=== PATIENT | male | born 1980 | race Caucasian/White ===

== ENCOUNTER → 2017-06-17 15:28 | Outpatient (CLI) | payer MEDICAID, SELFPAY ==
--- NOTE | 2017-06-17 15:35 | MRI_ITS ---
STUDY: MRI BRAIN WITH AND WITHOUT CONTRAST REASON FOR EXAM: Male, 36 years old. Optic nerve edema with blurry vision of the left eye for 5 days. TECHNIQUE: Standardized multiplanar fat and water weighted pulse sequences were obtained. 14 ml of Gadavist contrast material was administered intravenously for the contrast portion of the examination. COMPARISON: None. FINDINGS: Normal size of the ventricles and extra-axial spaces for the patient's age. Normal white matter tracts of the supratentorial brain. There is no evidence for recent intracranial ischemia or other cause of cytotoxic edema on diffusion weighted imaging (DWI). Incidental choroid plexus cysts are present. Normal bilateral basal ganglia. Normal thalami. There is no extra-axial fluid accumulation. Normal flow voids within the major intracranial circulation suggesting patency by spin echo criteria. Normal venous enhancement. There is no enhancing intra-axial or extra-axial abnormality. Normal sella turcica, pituitary gland, infundibular stalk, optic chiasm and hypothalamus. Normal tectal plate and pineal gland. Normal midbrain, diana and medulla. Normal cerebellum. Normal basal cisterns. Normal bilateral temporal bones. Normal bilateral internal auditory canals. No demonstrated orbital abnormality, within the constraints of a routine brain study. Normal visualized paranasal sinuses. Normal calvarium and skull base. Normal visualized soft tissue structures. Normal visualized upper cervical spine. MRI/Brain W/WO Contrast IMPRESSION: No evidence of acute intracranial bleed, mass or ischemia. No evidence of abnormal orbital enhancement, edema or inflammatory process. Electronically Signed: Narayan Mcgarry DO at 23:58 EST , Service support ,
== END ==
PROVIDERS: Visit Provider Ophthalmology
DX: H47.10 Unspecified papilledema (principal)
CPT/HCPCS: 70553; A9585

== ENCOUNTER 2017-12-03 23:29 | Emergency (ER) | payer MEDICAID, SELFPAY ==
[2017-12-03 23:31] VITALS: BP 132/78; PULSE 84; RESP 17; TEMP 36.3; O2SAT 98; BMI 42.1
--- NOTE | 2017-12-03 23:58 | ED.VISSUMM ---
- ER Visit Summary Date of Service: 12/03/17 Chief Complaint: [] Food stuck in my esophagus History of Present Illness: The patient is a 37 M with the above complaining of food stuck in his esophagus and since today at 5 PM. He was eating fried chicken and felt to get stuck. It happens 1-2 times per month. Usually he can get it to go down. He has never had to have an emergent endoscopy to remove food. He is on Prilosec for reflux. He did have an endoscopy that showed an esophageal ring 2 years ago. He tried to drink water and soda and it comes back. He has tried 50 times at home. Physical Examination: [] Vital signs reviewed General: Well-nourished well-developed Head: Normocephalic atraumatic Eyes: Pupils equal round and reactive to light extraocular movements intact ENT: TMs clear no hemotympanum no trauma Neck: Nontender full range of motion Cardiovascular: Regular rate rhythm no murmurs normal S1-S2 Respiratory: No distress clear to auscultation bilaterally chest nontender Abdomen: Soft nontender nondistended normal bowel sounds no masses Back: Nontender no CVA tenderness Extremities: Nontender active range of motion ?4 extremities no trauma Skin: Normal color no trauma Neuro alert oriented cranial nerves II through XII intact normal strength sensation reflexes Test Results: [] Emergency Department Course and Treatment: [] IV established given IV fluids and glucagon. Given soda to try to get it to pass. No success with either. Given a second dose of glucagon with no success. Surgery cannot do the case. Will be transferred Treatment Plan: [] Disposition: [] Impression: [] Food bolus impaction esophagus This note was generated with [employer] dictation software. It may contain incorrect words, spelling, and punctuation that were not noted in review of the chart prior to signing ED Disposition - Plan for ED Patient: Chief Complaint: Foreign Body Referrals: Torsten Gamez [Primary Care Provider] -
[2017-12-04] MEDS: 0.9% Normal Saline 1,000 ML 1000 ML IV (00:35)
[2017-12-04] MEDS: Glucagon 1 MG/ML Syringe IV ×2 (00:35→02:14)
[2017-12-04 01:29] VITALS: BP 143/89; PULSE 82; RESP 12; O2SAT 98
--- NOTE | 2017-12-04 02:39 | ED.RN ---
NURSE TO NURSE REPORT CALLED AT 0220. CRISTIN AT [facility] ACCEPTED REPORT. PIV IN RIGHT HAND WAS DISCONTINUED. SITE INTACT.
[2017-12-04 02:43] VITALS: BP 139/72; PULSE 87; RESP 18; O2SAT 97
== END 2017-12-04 02:44 | disposition short-term general hospital (02) ==
LOC: ED 12-04 00:17
PROVIDERS: Emergency Provider Emergency Medicine
DX: T18.128A Food in esophagus causing other injury, initial encounter (principal); X58.XXXA Exposure to other specified factors, initial encounter; Y93.89 Activity, other specified; Y92.9 Unspecified place or not applicable; K21.9 Gastro-esophageal reflux disease without esophagitis; G47.33 Obstructive sleep apnea (adult) (pediatric); E66.9 Obesity, unspecified; Z68.41 Body mass index [BMI] 40.0-44.9, adult; Z72.0 Tobacco use
CPT/HCPCS: 96374; 96376; 99283; J7030; A4216; J1610

== ENCOUNTER → 2020-12-03 13:41 | Outpatient (CLI) | payer MEDICAID, SELFPAY ==
[2020-12-03 15:23] LABS: Absolute Neutrophil Count 4.5 X10^3/uL (2.0-7.7); Basophil# 0.08 X10^3/uL; Basophil% 0.9 % (0-1); Eosinophils% 8.3 % (0-5); Hematocrit 45.9 % (40-54); Hemoglobin 15.4 g/dL (13.0-16.5); Lymphocyte % 31.9 % (19-41); Mean Corp Hgb Conc 33.6 g/dL (32-36); Mean Corpuscular Hgb 29.5 pg (27.0-32.0); Mean Corpuscular Volume 87.9 fL (80-94); Mean Platelet Vol. 9.8 fl (6.2-12.0); Monocyte# 0.44 X10^3/uL; Monocyte% 5.2 % (0-10); NRBC Flagged by Analyzer 0 % (0-5); Neutrophil # 4.51 X10^3/uL (2.7-7.7); Neutrophil % 53.3 % (47-70); Platelet Count 311 K/mm3 (150-450); RBC Distribution Width CV 12.9 % (11.6-14.6); RBC Distribution Width SD 41.4 fl (35.1-43.9); Red Blood Count 5.22 M/mm3 (4.6-6.2); White Blood Count 8.5 K/mm3 (4.4-11.0)
[2020-12-03 15:39] LABS: Erythrocyte Sedimentation Rate 11 mm/hr (0-20)
[2020-12-03 15:59] LABS: CRP 4.81 mg/L (0.0-3.0)
[2020-12-04 08:47] LABS: Syphilis Antibodies Non-reactive
[2020-12-06 06:08] LABS: QNTFERON TB Mitogen Value > 10.00 IU/mL (.); QNTFERON TB Nil Value 0 IU/mL (.); QNTFERON TB1+ Ag Value 0.01 IU/mL (.); QNTFERON TB2+ Ag Value 0 IU/mL (.)
[2020-12-06 07:38] LABS: Angiotensin Convert Enzyme 26 U/L (14-82); QNTIFERON TB Positive Criteria Negative (Negative)
== END ==
PROVIDERS: Visit Provider Ophthalmology
DX: H47.10 Unspecified papilledema (principal)
CPT/HCPCS: 36415; 82164; 85025; 85652; 86140; 86480; 86780

== ENCOUNTER → 2020-12-05 06:24 | Outpatient (CLI) | payer MEDICAID, SELFPAY ==
--- NOTE | 2020-12-05 06:39 | MRI_ITS ---
STUDY: MRI ORBITS WITH AND WITHOUT CONTRAST REASON FOR EXAM: Male, 40 years old. OPTIC DISC EDEMA LEFT EYE, blurred vision TECHNIQUE: Standardized fat and water weighted pulse sequences were obtained in all 3 orthogonal planes, pre-and post contrast administration. IV Yes YES was administered for the contrast portion of the examination. COMPARISON: 06/17/2017. FINDINGS: Normal bilateral globes. Normal bilateral optic nerve sheath complexes and optic nerves. Normal bilateral intraconal and extraconal spaces. Normal bilateral extraocular muscles. Normal optic chiasm and post-chiasmatic tracts. Normal sella turcica, pituitary gland, infundibular stalk, and hypothalamus. Normal bilateral cavernous sinuses. Normal tectal plate and pineal gland. Normal flow voids within the major intracranial circulation suggesting patency by spin echo criteria. Normal size of the ventricles and extra-axial spaces for the patient''s age. Normal white matter tracts of the supratentorial brain. Normal bilateral basal ganglia. Normal thalami. There is no extra-axial fluid accumulation. Normal midbrain, diana and medulla. Normal cerebellum. Normal basal cisterns. No significant change since prior exam MRI/Orbit Face Neck W/WO Contrast IMPRESSION: Normal enhanced and unenhanced MRI of the orbits. Electronically Signed: Sandro Morel MD at 16:37 EDT , Service support ,
== END ==
PROVIDERS: Referring Provider Ophthalmology; Visit Provider Ophthalmology
DX: H47.10 Unspecified papilledema (principal)
CPT/HCPCS: 70543; A9575

== ENCOUNTER → 2020-12-07 12:48 | Outpatient (CLI) | payer MEDICAID, SELFPAY ==
--- NOTE | 2020-12-07 12:55 | CDU_ITS ---
Reason For Study: Optic disc Edema Rt. Velocities/BP Lt. Velocities/BP Prox CCA 168/21 cm/sec. Prox CCA 151/26 cm/sec. Mid CCA 126/25 cm/sec. Mid CCA 117/35 cm/sec. Dist CCA 99/21 cm/sec. Dist CCA 101/30 cm/sec. Prox ICA 73/24 cm/sec. Prox ICA 86/33 cm/sec. Mid ICA 93/40 cm/sec. Mid ICA 111/45 cm/sec. Dist ICA 100/44 cm/sec. Dist ICA 93/28 cm/sec. Rt. ICA/CCA = 0.8. Lt. ICA/CCA = 1.0. Prox ECA 231/27 cm/sec. Prox ECA 165/17 cm/sec. Rt. Vert. 48/12 cm/sec. Lt. Vert. 39/11 cm/sec. Right Extracranial There is intimal thickening but no significant atherosclerotic plaque noted in the right common carotid artery. There is heterogeneous, smooth atherosclerotic plaque noted in the right internal carotid artery. There is intimal thickening but no significant atherosclerotic plaque noted in the right external carotid artery. Antegrade flow is noted in the right vertebral artery. Left Extracranial There is intimal thickening but no significant atherosclerotic plaque noted in the left common carotid artery. There is homogeneous, smooth atherosclerotic plaque noted in the left internal carotid artery. There is no significant atherosclerotic plaque noted in the left external carotid artery. Antegrade flow is noted in the left vertebral artery. Procedure Carotid Duplex 30573. This is a Carotid Duplex examination using B-mode, color flow and specral Doppler. Exam performed in department. VL/Carotid Duplex Ultrasound Interpretation Summary Mild (<50%) stenosis right extracranial internal carotid. Mild (<50%) stenosis left extracranial internal carotid. Flow within the vertebral arteries is antegrade bilaterally. Elevated velocities in the right external carotid artery are suggestive of stenosis >50%. Ordering Physician: Rolf Peoples Referring Physician: Torsten Gamez Performed By: Yazmin Salazar RDCS, RVT
== END ==
PROVIDERS: Referring Provider Ophthalmology; Visit Provider Ophthalmology
DX: H47.10 Unspecified papilledema (principal)
CPT/HCPCS: 93880

== ENCOUNTER 2024-12-21 08:57 | Outpatient (CLI) | payer MEDICAID, SELFPAY ==
--- NOTE | 2024-12-21 09:10 | US_ITS ---
PROCEDURE: US NEEDLE BIOPSY/SOFT TISSUE N/A REASON FOR EXAM: M25.311 - OTHER INSTABILITY, RIGHT SHOULDER TECHNIQUE: Pre MRI right glenohumeral joint injection, under sonographic guidance. COMPARISON: Right shoulder study of 10/31/2024. FINDINGS: Procedure: Following informed consent, and using standard sterile technique, a right glenohumeral joint pre MRI injection was performed under sonographic guidance, via a posterior approach. A 22 gauge needle was placed under sonographic guidance and a combined total of 20 mL fluid was injected into the glenohumeral joint. This consisted of 5 mL normal saline, 5 mL 1% lidocaine, and 10 mL dilute Clariscan. No complication was encountered, in the patient left the department for MRI examination. US/US Needle Biopsy/Soft Tissue IMPRESSION: Successful pre MRI ultrasound-guided right glenohumeral joint injection. MR ar thrographic images pending. Reading Location: [place] [address]
--- NOTE | 2024-12-21 09:17 | MRI_ITS ---
PROCEDURE: UPPER EXT JT W/CONTRAST 12/21/2024 REASON FOR EXAM: RT SHLDR 4X DISLOCATION IN 5YRS TECHNIQUE: Right shoulder MR arthrogram COMPARISON: Right shoulder study of 10/31/2024. FINDINGS: A small amount of intra-articular right glenohumeral joint contrast is seen, along with extravasated contrast material. Abdj-gd-jhyltxel right acromioclavicular joint degenerative changes are seen. No acute osseous signal change is seen. No significant rotator cuff disease is noted. The long head of the biceps tendon appears intact. The right glenohumeral joint demonstrates a tear of the anterior and anterior- inferior glenoid labrum. MRI/Upper Ext Jt W/Contrast IMPRESSION: 1. Anterior and anterior-inferior glenoid labral tear. 2. Qnnc-vy-luqcpieu right acromioclavicular joint degenerative changes. Reading Location: [place] [address]
[2024-12-21] MEDS: LIDOCAINE INTRAARTIC (09:45)
[2024-12-21] MEDS: [UNRECOGNIZED DRUG - OTHER] INTRAARTIC (09:45)
== END 2024-12-21 23:59 | disposition home or self-care (01) ==
LOC: RAD 08:58
PROVIDERS: Referring Provider Orthopaedic Surgery Sports Medicine; Visit Provider Orthopaedic Surgery Sports Medicine
DX: M25.311 Other instability, right shoulder (principal)
CPT/HCPCS: 20611; 73222; 76942

== ENCOUNTER 2025-01-18 09:42 | Day surgery (SDC) | payer MEDICAID, SELFPAY ==
[2025-01-18] VITALS (12 sets, daily range): BP systolic 108–146; BP diastolic 63–79; PULSE 38–76; RESP 16–18; TEMP 36–36.7; O2SAT 92–98; BMI 44.6
--- NOTE | 2025-01-18 10:04 | PCM.HP.STD ---
HPI - General HPI Narrative PALOMA MORGAN, is a 44 M who presents for right shoulder arthroscopy, labral repair. no change to h and p. right shoulder marked. ok to proceed. rab, post op instructions, and narcotic counselling. plan for block. MR#: [id number] Acct: [id number] Name: PALOMA MORGAN Rep #: [id number] : 1980 Provider: Dr. Connor Hoang MD Age/Sex: 44/M Location: [facility] [place] Status: Signed Intake Vital Signs 10/31/2509:21 12/21/2510:49 12/22/2514:37 Height 5 ft 11 in 5 ft 11 in 5 ft 11 in Weight: 325 lb 320 lb BMI 45.3 44.6 Intake Visit Reasons: RIGHT SHOULDER Chief Complaint: Right shoulder MRI review Accompanied by: Daughter Is patient in pain?: No Allergies erythromycin base Adverse Reaction (Verified 12/22/24 15:39) Rash Penicillins Adverse Reaction (Verified 12/22/24 15:39) Rash sulfamethoxazole (From ) Adverse Reaction (Verified 12/22/24 15:39) Rash trimethoprim (From ) Adverse Reaction (Verified 12/22/24 15:39) Rash Medications ?Medication ?Instructions ?Recorded ?Confirmed ?Type loratadine 10 mg tablet (Allergy 10 mg PO QDAY 10/31/24 12/22/24 History Relief (loratadine)) montelukast 10 mg tablet 10 mg PO QDAY 10/31/24 12/22/24 History rosuvastatin 10 mg tablet 10 mg PO QDAY 10/31/24 12/22/24 History Have you fallen in the past year?: No PFSH Medical History Tear of right glenoid labrum Hypercholesteremia Instability of right shoulder joint Surgical History History of tonsillectomy Social History Smoking Status: Current every day smoker HPI RIGHT SHOULDER Details: This documentation accurately reflects the service provided and the decisions made by me, Dr. Connor Hoang MD 12/22/24 1253. Part of today?s visit was documented by [ ], acting as scribe. PALOMA MORGAN is a 44 year old M here today for FU R shoulder MRI for instability. Patient still having weakness and instability sensations especially with doing work over shoulder height and above head Supplemental Info [facility] Imaging Services [address] [place] [address] Upper Ext Jt W/Contrast MR#: [id number] Acct: [id number] Name: PALOMA MORGAN Rep #: [id number] : 1980 M 44 From: Pa Alonso MD PCP: Dr. Torsten Gamez MD Status: REG CLI Study: Upper Ext Jt W/Contrast Date of Exam: 12/21/24 Exam# [id number] Ordering Dr: Connor Hoang MD PROCEDURE: UPPER EXT JT W/CONTRAST 12/21/2024 REASON FOR EXAM: RT SHLDR 4X DISLOCATION IN 5YRS TECHNIQUE: Right shoulder MR arthrogram COMPARISON: Right shoulder study of 10/31/2024. FINDINGS: A small amount of intra-articular right glenohumeral joint contrast is seen, along with extravasated contrast material. Fmxf-bd-ydhnnxnu right acromioclavicular joint degenerative changes are seen. No acute osseous signal change is seen. No significant rotator cuff disease is noted. The long head of the biceps tendon appears intact. The right glenohumeral joint demonstrates a tear of the anterior and anterior-inferior glenoid labrum. MRI/Upper Ext Jt W/Contrast IMPRESSION: 1. Anterior and anterior-inferior glenoid labral tear. 2. Jxua-qv-rzsdksee right acromioclavicular joint degenerative changes. Reading Location: [place] [address] I independently reviewed the imaging. Concur with radiologist report. Coding Level of Care Code Off vis,est,level 4 Diagnoses Instability of right shoulder joint M25.311 Tear of right glenoid labrum S43.431A Assessment and Plan Assessment and Plan (1) Instability of right shoulder joint: Status: Acute Plan: PALOMA MORGAN is a 44 year old M here today for FU R shoulder MRI for instability, which shows puneet inferior labrum tear, consistent with shoulder dislocation and persistent instability sensations. Patient has now had 4 total dislocation and instability episodes. Can continue treating this nonoperatively however the surgical option would offer him a better chance of a stable shoulder less chance of long-term damage to the cartilage and possibly the rotator cuff tendons and other structures about the shoulder. This would be in the form of right shoulder arthroscopy, labral repair. The patient understands wished to go ahead with surgery. We also discussed the postoperative recovery 2 weeks in a sling up to 3 to 4 months before going back to any sort of aggressive overhead activities. Surgery does have risks of re-tear or stiffness especially given the patient's age over 40 years old. Patient understands and wished to go ahead with surgery and signed consent form for that. Pros and cons risks and benefits were discussed with the patient including but not limited to infection, pain, stiffness, bleeding, damage to surrounding structures, neurovascular injury, recurrence or retear, failure or wear of hardware or fixation, instability, fracture, deep vein thrombosis and pulmonary embolism, anesthetic risks, , patient dissatisfaction, need for further surgery and other risks. Patient understood and wished to proceed with surgery, and signed the informed consent documentation. (2) Tear of right glenoid labrum: Status: Acute Clinical Quality Measures Falls Risk Screening/Assistive Devices Have you fallen in the past year?: No Ortho Exam General General: Yes no acute distress Neurologic: Yes alert and Yes oriented x3 Psychologic: Yes reasonable and appropriate [facility] Medical History History of steroid therapy Difficulty swallowing Smoker Sleep apnea Asthma Tear of right glenoid labrum Hypercholesteremia Instability of right shoulder joint Home Medications ?Medication ?Instructions ?Recorded ?Last Taken ?Type loratadine 10 mg tablet (Allergy 10 mg PO QDAY 10/31/24 01/17/25 History Relief (loratadine)) montelukast 10 mg tablet 10 mg PO QDAY 10/31/24 01/17/25 History rosuvastatin 10 mg tablet 10 mg PO QDAY 10/31/24 01/17/25 History albuterol sulfate 90 mcg/actuation 2 puff inhalation Q6H PRN 01/04/25 Unknown History aerosol inhaler shortness of breath or wheezing dupilumab 300 mg/2 mL subcutaneous 300 mg subcut .Q 1 1/2 WEEKS 01/04/25 01/06/25 History syringe (Dupixent) Allergy/AdvReac Type Severity Reaction Status Date / Time erythromycin base Allergy Rash Verified 01/18/25 10:16 Penicillins Allergy Rash Verified 01/18/25 10:16 sulfamethoxazole (From Allergy Rash Verified 01/18/25 10:16 Septra) trimethoprim (From ) Allergy Rash Verified 01/18/25 10:16 Surgical History History of tonsillectomy Social History Smoking Status: Current every day smoker tobacco type: cigarettes
[2025-01-18] MEDS: Lactated Ringers 1,000 ML 15 ML IV (10:18)
--- NOTE | 2025-01-18 10:26 | PRE.ANES_ITS ---
ASA Classification* ASA Classification ASA Classification: 2 Assessment & Plan Anesthesia* Anesthesia Assessment Anesthesia Assessment: Discussed sedation and/or anesthesia options, risks, benefits, and alternatives with patient/parents/legal guardian/POA. Questions invited. The patient/parents/legal guardian/POA seems to understand and agrees to proceed with anesthesia plan. Reviewed the physical assessment, medical history, allergy history and patient home medications list prior to surgery/procedure/anesthetic and documented any changes. Performed airway and anesthesia risk assessments. Anesthesia Type Anesthesia Type: General and Block History Source History Obtained from:: Patient and Chart Anesthesia Focused Assessment* Temperature: 97.8 F Pulse Rate: 59 Blood Pressure: 134/77 Respiratory Rate: 17 Pulse Ox: 96 Oxygen Delivery Method: Room Air Airway Assessment Mouth opens: >3 cm Mallampati Score: II Teeth Condition: Missing Neck Range of motion (ROM): Full ROM Labs Anesthesia Preop lab: CBC WBC, (4.4-11.0) 8.5 K/mm3 12/03/20, 13:46 RBC, (4.6-6.2) 5.22 M/mm3 12/03/20, 13:46 Hgb, (13.0-16.5) 15.4 g/dL 12/03/20, 13:46 Hct, (40-54) 45.9 % 12/03/20, 13:46 Plt Count, (150-450) 311 K/mm3 12/03/20, 13:46 CHEMISTRY Potassium, (3.5-5.1) 4.0 mmol/L 03/26/12, 13:50 Sodium, (136-145) 139 mmol/L 03/26/12, 13:50 BUN, (7-18) 13 mg/dL 03/26/12, 13:50 Creatinine, (0.8-1.3) 1.1 mg/dL 03/26/12, 13:50 Glucose, (70-110) 80 mg/dL 03/26/12, 13:50 COAG Pre-Assessment Diagnosis/Proposed Procedure Planned Operative Procedure(s): (R) Right shoulder arthroscopy, labrum repair Anesthesia History 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 When Was Last Pacemaker Check QUESTION #4 FULL TEXT: You/Your Family Experience fever (hyperthermia) with Anesthesia Last Oral Intake Last Oral intake: Last Oral Intake NPO since 00:00 01/18/25 10:19 Meds taken in AM with sips of No 01/18/25 10:19 water? 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 Female No 01/04/25 11:22 HX of Motion Sickness No 01/04/25 11:22 HX of N/V After Surgery No 01/04/25 11:22 Non-Smoker No 01/04/25 11:22 Duration of Surgery greater Yes 01/04/25 11:22 than 60 minutes Number of Risk Factors 1 01/04/25 11:22 PONV Score Low Risk 01/04/25 11:22 Height & Weight Height & Weight: Anesthesia: Height & Weight Height 5 ft 11 in 01/18/25 10:19 Weight: 145 kg 01/18/25 10:19 Body Mass Index (BMI) 44.6 01/18/25 10:19 Respiratory Assessment Respiratory Assessment - continuous crusher operator: Respiratory Tract Infection Hx - continuous crusher operator Hx Respiratory Tract Infection No 01/04/25 11:22 STOP Sleep Apnea STOP Sleep Apnea - continuous crusher operator: STOP Sleep Apnea - continuous crusher operator Hx Hypertension No 01/04/25 11:22 Hx Sleep Apnea Yes: NONE USED 01/04/25 11:22 CPAP No 01/04/25 11:22 BIPAP No 01/04/25 11:22 Do you snore loudly (louder than talking or can be heard Do you often feel tired/ fatigued/ sleepy during daytime? Has anyone observed you stop breathing during sleep? STOP Results Positive 01/04/25 11:22 QUESTION #5 FULL TEXT : Do you snore loudly (louder than talking or can be heard through closed doors)? 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 Specify any problems Hx of Preganancy in last 3 N/A 01/04/25 11:22 Months Nurse Filling Out Transfusion VCHRISTIN 01/04/25 11:22 & Questions: Date: 01/04/25 01/04/25 11:22 Time: 11:23 01/04/25 11:22 Patient unable to answer at this time (ie. confused, unrespo /Reproduction History /Reproductive History - continuous crusher operator: /Reproductive Hx- continuous crusher operator Hx Now No 01/04/25 11:22 Gestational Age (in weeks): EDC: Hx Hx Para Hx Section SAB No 01/04/25 11:22 Active Medications Active Medications: Current Medications Generic Name Dose Route Start Last Admin Trade Name Freq PRN Reason Stop Dose Admin Cefazolin Sodium 3 gm/ Sodium 115 mls @ 200 mls/hr 01/18/25 12:00 Chloride IV 01/18/25 12:34 INTRAOP ONE Lactated Ringer's 1,000 mls @ 15 mls/hr 01/18/25 10:00 01/18/25 10:18 IV 15 mls/hr .Q48H VICKIE Administration PFSH Medical History History of steroid therapy Difficulty swallowing Smoker Sleep apnea Asthma Tear of right glenoid labrum Hypercholesteremia Instability of right shoulder joint Home Medications ?Medication ?Instructions ?Recorded ?Last Taken ?Type loratadine 10 mg tablet (Allergy 10 mg PO QDAY 10/31/ 5 01/17/25 History Relief (loratadine)) montelukast 10 mg tablet 10 mg PO QDAY 10/31/2401/17 History rosuvastatin 10 mg tablet 10 mg PO QDAY 10/31/2401/17 History albuterol sulfate 90 mcg/actuation 2 puff inhalation Q 6H PRN 01/04/25 Unknown History aerosol inhaler shortness of breath or [place] ing dupilumab 300 mg/2 mL subcutaneous 300 mg subcut .Q 1 1/2 WEEKS 01/04/25 01/06/25 History syringe (Dupixent) Allergy/AdvReac Type Severity Reaction Status Date / Time erythromycin base Allergy Rash Verified 01/18/25 10:16 Penicillins Allergy Rash Verified 01/18/25 10:16 sulfamethoxazole (From Allergy Rash Verified 01/18/25 10:16 Septra) trimethoprim (From Janra) Allergy Rash Verified 01/18/25 10:16 Surgical History History of tonsillectomy Social History Smoking Status: Current every day smoker tobacco type: cigarettes Review of Systems (Anesthesia) ROS Narrative System reviewed and no additional complaints, except as documented.
[2025-01-18] MEDS: Midazolam 2 MG/2 ML Syringe IV (11:31)
[2025-01-18] MEDS: Cefazolin 1 GM/5 ML Vial 3 GM IV (11:58)
[2025-01-18] MEDS: Lidocaine 1% (5 ml sdv) 5 ML Vial IV (12:04)
[2025-01-18] MEDS: Epinephrine (1 mg/ml) 1 MG/ML VIAL (12:42)
--- NOTE | 2025-01-18 13:22 | DCINST_ITS ---
Discharge Instructions Diet Discharge Diet: No restrictions Activity Ice area for (Minutes): 10 Lifting Restrictions: pendulums, hand wrist elbow rom 4x/day, no lifting over 1 pound Additional Activity Instructions:: ok to take breaks from sling, but keep hand in lap Dressing / Incision Call your doctor if your incision/area has: Continuous Slow Oozing, Sudden Increased Bleeding, Increased Pain/ Swelling, Increased Redness, Foul Smelling Discharge and Swelling at the incision site Call your doctor if you observe: Fever of 101 or Higher, Coldness, Increased Pain and Numbness or Tingling Change Dressing in: leave in place till F/U Cleanse incision/area with: Do not get Incision Wet Additional Dressing/Incision Instructions:: ok to remove large dressing, keep tapes in place, keep incisions covered Follow Up Care Please Follow Up With: Connor Hoang MD When: within 2 weeks Test Results: Test results from this visit will be discussed in further detail at your follow- up appointment, if applicable. Discharge Plan Admission Attending Provider: Connor Hoang Primary Care Provider: Torsten Gamez Instructions Patient Instructions: After Shoulder Arthroscopy Print Language: Divehi Discharge Orders/Prescriptions Prescriptions: New oxycodone-acetaminophen [Percocet] 5-325 mg tablet 1 tab PO Q6H MDD 6 PRN (Reason: pain) 3 Days Qty: 20 0RF No Action rosuvastatin 10 mg tablet 10 mg PO QDAY loratadine [Allergy Relief (loratadine)] 10 mg tablet 10 mg PO QDAY montelukast 10 mg tablet 10 mg PO QDAY Dupixent Syringe 300 mg/2 mL syringe 300 mg SUBCUT .Q 1 1/2 WEEKS Patient Comments: [NO ORIGINAL SIG] albuterol sulfate 90 mcg/actuation HFA aerosol inhaler 2 puff INHALATION Q6H PRN (Reason: shortness of breath or wheezing) Referrals / Follow Up: Torsten Gamez MD [Primary Care Provider, Medical] Connor Hoang MD [Med Staff - Active Staff, Orthopedics] Disposition Disposition (needs filled in before D/C Order can be placed): Home, Self Care
--- NOTE | 2025-01-18 13:27 | PCM.OPRPT ---
Procedures Musculoskeletal 20xxx-29xxx: Other Procedure See Report Operative Report (Standard) Operative Information Date of Procedure: 01/18/25 Pre-Operative Diagnosis: Right shoulder labrum tear and instability Post-Operative Diagnosis: same, SLAP tear Surgery/Procedure Performed: Left shoulder arthroscopy labrum repair and repair of SLAP tear. emergency spill response technician: Yes Metallographic Technician: [email or web address] Tasks completed by first press operator: Retracting Type of Anesthesia: Block,Regional and General RN Documented Start/Stop Times: Operation Date: 01/18/25 12:00 Case Time Into Pre-Op 01/18/25 09:50 Anesthesia Start 01/18/25 11:58 Into Room 01/18/25 11:58 Procedure Start 01/18/25 12:28 Procedure Start Time: 12:28 Procedure Stop Time: 13:28 Select all DRAINS/GRAFTS/IMPLANTS that apply: Implanted device Implanted device details: 1.8mm fiber nolberto anchors x 5. arthrex Estimated Blood Loss: 25 Specimen collected: No Description of surgery: Patient brought to the operating room theater. Placed supine on the table. 3 g of IV Ancef administered prior to the start of the case. General anesthesia induced. All bony prominences padded. Patient transferred right side up lateral decubitus beanbag positioner. Axillary roll placed. SCDs on the legs. Upper extremity prepped and draped in the usual sterile fashion with chlorhexidine-based prep solution allowing over 3 minutes drying time prior to draping. 10 pounds of inline traction with the arm in 45 degrees of abduction was utilized. Preoperative timeout performed to confirm the site patient and the surgery. Began by understanding the arthroscope into the intra-articular portion of the shoulder through a standard posterior arthroscopy portal. Did a full diagnostic arthroscopy. There was unstable cartilage flaps in the middle of the glenoid I gently debrided those through an anterior portal which I established just posterior to the biceps tendon and through the rotator interval. There is a tear in the labrum from the superior portion of the biceps all the way inferiorly to 6:00. Rest of the labrum appeared normal. No loose bodies. Undersurface of the rotator cuff appeared normal. Long head of the biceps was normal aside from the attachment point where there was a SLAP tear. I elevated the labrum using elevator instruments. I placed another cannula using two 7 x 7 mm cannula through the rotator interval 1 just superior to the subscapularis. Used a shaving instrument to stimulate a bony bleeding bed for healing as well as using a ring curette to remove some small amount of cartilage at the anterior edge of the anterior glenoid. I then drilled and placed sequentially from inferior to superior at the anterior aspect of the glenoid 1.8 mm Arthrex all suture fiber tack knotless anchors. Placed these at 6, 5, 4 and 3 oclock positions. I sequentially tightened these and cut the suture short as well as capturing some small amount of the capsule for a capsular labral shift. Also of the superior labrum was also unstable therefore elected to do a SLAP repair using a similar 1.8 mm knotless Arthrex fiber tack anchor at the 12 o'clock position passing the repair suture just anterior to the biceps removed. Did try initially through a trans cuff portal / neviaser, but not a good angle. This repair was also stable and solid. Final arthroscopy pictures taken and saved onto the system. Case terminated wounds thoroughly irrigated and cleaned with wet and dry dressing portal sites closed with 3-0 Monocryl suture. Skin cleaned with wet and dry dressing followed by application of Steri-Strips Adaptic 4 x 4 gauze ABD dressing cloth tape and an abduction pillow sling. Patient woken up from a general anesthetic transferred off the operating table taken to postanesthetic care unit in stable condition. All sponge needle instrument counts were correct no complications plan for the patient discharge home according to day surgery criteria follow-up in the office within 2 weeks time. CPT 30295, 48819, 48616 Surgical Findings: as above Complications Complications: No Admit VTE Documentation VTE Present on Admission: No VTE Mechan Device Prophylaxis: SCD's VTE Pharm Prophylaxis ordered?: No Reason prophylaxis not ordered: Treatment Not Indicated
--- NOTE | 2025-01-18 13:42 | PCM.POST.ANE ---
Anesthesia: Postop Eval I Current Vital Signs Temperature: 98.1 F Pulse Rate: 74 Blood Pressure: 146/68 Respiratory Rate: 16 Pulse Ox: 96 Assessment Airway patent: Yes Spontaneous unlabored respirations: Yes nausea: No Vomiting: No Anesthesia Complication: No Fluid Hydration Crystalloid volume administer (ml): 900 Total IV fluid infused: 900 Progress Note Anesthesia document: Postop Eval 1 completed: Yes
--- NOTE | 2025-01-18 15:34 | POSTOPAN2_ITS ---
Anesthesia Postop Eval I Sum Postop Eval Completion status Anesthesia document: Postop Eval 1 completed: Yes Anesthesia Postop Eval I Summary Anesthesia Postop Eval I Summary: Anesthesia Postop Eval I: Assessment Summary Airway patent Yes 01/18/25 13:42 DYE BECK REEL [email or web address] Spontaneous unlabored Yes 01/18/25 13:42 DYE BECK REEL [email or web address] respirations Mental status nausea No 01/18/25 13:42 DYE BECK REEL [email or web address] Vomiting No 01/18/25 13:42 DYE BECK REEL [email or web address] Anesthesia Postop Eval I: Fluid Summary Crystalloid volume administer 900 01/18/25 13:42 DYE BECK REEL [email or web address].[email or web address] (ml) Colloids volume administered ( ml) Blood Product volume administered (ml) Total IV fluid infused 900 01/18/25 13:42 DYE BECK REEL [email or web address] Anesthesia Postop Eval I: Summary Notes Anesthesia Complication No 01/18/25 13:42 DYE BECK REEL [email or web address] Anesthesia Complication Comment: Post-operative progress note Anesthesia: Postop Eval II Evaluation Mental status: Awake and Calm Pain Level: 1 nausea: No Vomiting: No Complications Anesthesia Complication: No
--- NOTE | 2025-01-18 15:34 | PCM.POSTANE2 ---
Anesthesia Postop Eval I Sum Postop Eval Completion status Anesthesia document: Postop Eval 1 completed: Yes Anesthesia Postop Eval I Summary Anesthesia Postop Eval I Summary: Anesthesia Postop Eval I: Assessment Summary Airway patent Yes 01/18/25 13:42 HEATING ELEMENT [email or web address] Spontaneous unlabored Yes 01/18/25 13:42 HEATING ELEMENT [email or web address] respirations Mental status nausea No 01/18/25 13:42 HEATING ELEMENT [email or web address] Vomiting No 01/18/25 13:42 HEATING ELEMENT [email or web address] Anesthesia Postop Eval I: Fluid Summary Crystalloid volume administer 900 01/18/25 13:42 HEATING ELEMENT [email or web address] (ml) Colloids volume administered ( ml) Blood Product volume administered (ml) Total IV fluid infused 900 01/18/25 13:42 HEATING ELEMENT [email or web address] Anesthesia Postop Eval I: Summary Notes Anesthesia Complication No 01/18/25 13:42 HEATING ELEMENT [email or web address] Anesthesia Complication Comment: Post-operative progress note Anesthesia: Postop Eval II Evaluation Mental status: Awake and Calm Pain Level: 1 nausea: No Vomiting: No Complications Anesthesia Complication: No
== END 2025-01-18 15:07 | disposition home or self-care (01) ==
LOC: SDC 09:44 → AC 09:45
PROVIDERS: Referring Provider Orthopaedic Surgery Sports Medicine; Visit Provider Orthopaedic Surgery Sports Medicine
PROC: (CPT 29805; principal; 2025-01-18 11:40)
DX: S43.431A Superior glenoid labrum lesion of right shoulder, initial encounter (principal); F17.210 Nicotine dependence, cigarettes, uncomplicated; M25.311 Other instability, right shoulder; E78.00 Pure hypercholesterolemia, unspecified
CPT/HCPCS: 29807; 29822; 29806; 01630; 94640; C1713; J2405

== ENCOUNTER 2025-03-27 13:00 | Outpatient (RCR) | payer MEDICAID, SELFPAY ==
--- NOTE | 2025-02-01 09:51 | HP.PTEVAL ---
Patient's Visit Information Visit Information Visit Information: PALOMA MORGAN is a 44 year old M referred to Physical Therapy by Dr. Connor Hoang MD with a diagnosis of R shoulder SLAP repair 01/18/25. Date of Evaluation: 02/01/25 Physical Therapist: Alex Romero, PT, ATC Visit Plan Frequency: 2x /Week Duration: 6-8 Plan: A/PROM to R shoulder x 4 weeks. Begin strengthening at the 6 week pilo consisting or rotator cuff strengthening and scap stab ex's Subjective Subjective: DOS: 01/18/25. Pt reports he had a SLAP lesion repaired at that time. Pt notes he injured his R shoulder by falling off a oriental orthodox roof 15 years ago. Pt notes his R shoulder had popped out of place several times over the past several years as a result of his L shoulder instability. Pt notes he had to avoid overhead lifting for several years as that motion would result in a popping sensation which was very painful. Pt is R hand dominant, but notes he is able to use his L UE for a lot of activity. Pt reports he was in a sling until yesterday, but is now out. Pt denies any tingling or numbness in R UE at this time. Pt reports sleep difficulty at this time secondary to pain when he rolls over on it. Pt's major goal is to get back to work [employer]. 0/10 pain at rest, 2/10 pain at worst. 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 Pain R shoulder pain: Pain Intensity (Out of 10): 0 Pain Intensity Range: 2 Objective Objective: Neuro: B UE sensation is WNL to light touch. Observation: Incisions fully healed. No signs of infection at this time ROM: L shoulder flex= 165, abd= 165, ER= 55, IR= WNL; R shoulder flex= 40, abd= 45, ER= 5, IR= Severely limited degrees MMT: L shoulder flex= 22, abd= 31, ER= 40, IR= 32 #F; R shoulder not tested Balance/Special Test Scores Quick DASH Score: 15.9075 Goals Goal 1:: Decrease R shoulder pain x 50% to aid with sleep Goal Time Frame: 6-8 Weeks Goal 2:: Increase R shoulder ROM flex and abd to 120 degrees to aid with overhead lifting Goal Time Frame: 6-8 Weeks Goal 3:: Increase R shoulder strength to equal 90 % L shoulder strength to aid with RTW Goal Time Frame: 6-8 Weeks Goal 4:: I with HEP Goal Time Frame: 6-8 Weeks Rehabilitation Potential Physical Therapy Diagnosis: Pt has R shoulder pain, weakness, and limited ROM secondary to R SLAP repair Rehabilitation Potential: Good Anticipated Interventions Patient/Client Instruction: Educate patient on: Condition and Plan of Care For the Purpose of:: To improve self management Therapeutic Exercise to Include: Strength training, Endurance training, Flexibilty training, Passive ROM, Active ROM and Scapular Strength/Stabilization For the Purpose of:: To decrease pain, To increase ROM and To improve muscle performance and motor function Text: Thank you for the opportunity to evaluate your patient. For Medicare and Medicare HMO plans, please review the plan of care and approve it. It will need to be FAXED BACK to us at [phone] for Medicare purposes. For Medicare only, by signing this I certify the plan of care. Please let me know if there are questions or concerns regarding this plan of care. Physician Signature: Date:
--- NOTE | 2025-05-29 10:56 | HP.PT.NRP ---
Patient Information Patient Information: PALOMA MORGAN was seen in my office for initial evaluation on 02/01/25. The following Plan of Care was established for this patient: POC Established Initial Frequency: 2x /Week Initial Duration: 6-8 Anticipated Interventions Patient/Client Instruction: Educate patient on: Condition and Plan of Care For the Purpose of:: To improve self management Therapeutic Exercise to Include: Strength training, Endurance training, Flexibilty training, Passive ROM, Active ROM and Scapular Strength/Stabilization For the Purpose of:: To decrease pain, To increase ROM and To improve muscle performance and motor function Last Seen Last Seen: This patient was last seen in our office . Pertinent comments regarding their Physical therapy will appear below: Pt has not returned in greater than 30 days and is discontinued at this time. At this point I will be discontinuing this patient from physical therapy. I would be happy to see this patient again in the future if found appropriate by the physician. Thank you! Alex Romero, PT, ATC Balance/Gait/Functional tests Balance/Special Test Scores Quick DASH Score: 15.9075
== END 2025-03-27 19:00 | disposition home or self-care (01) ==
LOC: PT 13:00
PROVIDERS: PCP Nurse Practitioner Family; Referring Provider Orthopaedic Surgery Sports Medicine; Visit Provider Orthopaedic Surgery Sports Medicine
DX: M25.311 Other instability, right shoulder (principal); S43.431D Superior glenoid labrum lesion of right shoulder, subsequent encounter
CPT/HCPCS: 97110; 97140; 97161